=== PATIENT | female | born 1975 | race Caucasian/White ===

== ENCOUNTER 2022-06-19 12:58 | Emergency (ER) | payer BC, SELFPAY ==
--- NOTE | 2022-06-19 13:10 | ED.URI ---
HPI - URI/Sore Throat General Chief Complaint: Upper Respiratory Infection Stated Complaint: ore throat Time Seen by Provider: 06/19/22 13:28 Source: patient and RN notes reviewed Mode of arrival: ambulatory Limitations: no limitations History of Present Illness HPI Narrative: 47-year-old female presents with concern for sore throat for 2 weeks. Reports she has had a headache for that entire time. She reports she started having some right frontal sinus pain. She denies taking any [id number] medications other than throat lozenges. She denies fever, aches, chills, sweats. 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 EYES: Denies visual changes, redness, or discharge. ENT: Denies rhinorrhea, congestion. Reports sinus pain and sore throat. CARDIOVASCULAR: Denies chest pain, palpitations, or edema. RESPIRATORY: Denies cough. Denies dyspnea. GASTROINTESTINAL: Denies abdominal pain, nausea, vomiting, diarrhea SKIN: Denies rash or itching. MUSCULOSKELETAL: Denies myalgia. NEUROLOGIC: Reports headache. All systems reviewed & are unremarkable except as noted in HPI and below PMFSH Comments At time of signature, agree with nursing past medical, surgical, social and family history. There is no relevant family history pertinent to the presenting complaint Exam Narrative: GENERAL: Well-appearing, well-nourished, and in no acute distress. HEAD: Normocephalic EYES: PERRLA, conjunctivae clear ENT: Nares clear, sinus tenderness. Mucous membranes moist. TM pearly burden with dull light reflex bilaterally; no tragal tenderness. Oropharynx erythematous without lesions. Tonsils not enlarged and without exudate, no drooling, no hoarseness, no trismus, uvula midline. NECK: Supple. No lymphadenopathy CHEST: Clear to auscultation, breath sounds equal. No wheezing, rhonchi, rales, or stridor. No respiratory distress, speaks in full sentences. HEART: Regular rate and rhythm. No murmur heard. SKIN: Warm, dry, no rash. NEURO: Alert and oriented x3. PSYCH: Normal mood and affect Course Course Emergency Course: Patient is aware of diagnosis, understands and agrees to treatment plan. Anticipatory guidance given. Patient agrees to follow-up as directed and is aware of reasons to seek care at the emergency department. Portions of this record may have been created with voice recognition software Level of Care: Express Care Visit Vital Signs Vital signs: Reviewed. MDM - URI/Sore Throat MDM Narrative Medical decision making narrative: Differential diagnosis considered: Hawk virus, strep pharyngitis, allergic rhinitis, upper respiratory tract infection, sinusitis, rhinosinusitis, nasopharyngitis. viral pharyngitis, otitis media, otitis externa, pneumonia, bronchitis, viral cough syndrome, viral syndrome, and influenza. Exam findings show no acute concerns or changes; patient is non-toxic appearing and is in no distress. Patient is appropriate for outpatient treatment and follow-up. Lab Data Attestation: I reviewed the patient's lab results. Critical Care Time Critical Care Time Critical Care Time: No Discharge Plan Discharge Clinical Impression: Acute bacterial sinusitis Patient Disposition: Home, Self-Care Condition: Stable Instructions: Antibiotic Form Additional Instructions: Take medication as prescribed Nonprescription p
[2022-06-19 13:11] VITALS: BP 106/80; PULSE 85; RESP 16; TEMP 36.6; O2SAT 100
== END 2022-06-19 13:40 | disposition home or self-care (01) ==
PROVIDERS: Emergency Provider Nurse Practitioner; PCP Internal Medicine
DX: J01.90 Acute sinusitis, unspecified (principal); Z79.82 Long term (current) use of aspirin; I10 Essential (primary) hypertension; K21.9 Gastro-esophageal reflux disease without esophagitis
CPT/HCPCS: 87081; 87880; 99203; G0463

== ENCOUNTER 2024-06-20 01:33 | Day surgery (SDC) | payer BC, SELFPAY ==
[2024-06-04 13:01] VITALS: BMI 33.5
[2024-06-20 13:00] VITALS: BP 132/73; PULSE 88; RESP 18; TEMP 36.1; O2SAT 98
[2024-06-20 13:04] LABS: BEDSIDEPREGUCG Negative (Negative)
[2024-06-20] MEDS: LACTATED RINGERS 1,000 ML 150 ML IV CONT (13:12)
--- NOTE | 2024-06-20 13:12 | P.PNAN_ITS ---
Anes - Initial Pre Proc Eval Procedure: Operation Date: 06/20/24 14:00 Proposed Procedures p Colonoscopy - Pedrito Day MD Date/Time: 06/20/24 13:12 Surgeon: Pedrito Day MD Pre Op Diagnosis: family hx of cancer Patient Data Age: 49 Gender: F Height: 1.63 m Weight: 84.6 kg Last Vital Signs Temp 36.1 C L 06/20/24 13:00 Pulse 88 06/20/24 13:00 Resp 18 06/20/24 13:00 BP 132/73 06/20/24 13:00 Pulse Ox 98 06/20/24 13:00 O2 Del Method Room Air 06/20/24 13:00 Allergies Allergy/AdvReac Type Severity Reaction Status Date / Time naproxen [From Naprosyn] Allergy Intermediate Itching Verified 06/20/24 12:58 phenobarbital Allergy Intermediate Rash Verified 06/20/24 12:58 Home Medications Medication Instructions Recorded Confirmed Type diltiazem HCl 120 mg 120 mg PO DAILY 06/19/22 06/20/24 History capsule,extended release 24 hr omeprazole magnesium 20 mg 20 mg PO DAILY 06/19/22 06/20/24 History tablet,delayed release (Prilosec OTC) aspirin 325 mg tablet 325 mg PO DAILY 12/20/23 06/20/24 History cyanocobalamin (vitamin B-12) 1,000 mcg PO DAILY 12/20/23 06/20/24 History 1,000 mcg capsule magnesium 200 mg tablet 400 mg PO DAILY 12/20/23 06/20/24 History Laboratory Tests 06/20/24 13:00 POC Urine HCG, Qual Negative (Negative) Patient hx anesthesia problems: none Family hx anesthesia problems: none Results Review: All pre-operative results and documents have been reviewed as part of the pre- operative evaluation. [facility] Past Medical History Medical History Abscess after procedure surgery removal Tachycardia Surgical History Surgical History H/O eye surgery 1976 History of appendectomy 1989 Social History Social History Smoking status: Never smoker Alcohol intake: current Drinks per week: 4 Alcohol use details: occasionally Substance use type: does not use Do You Feel Safe in your Home?: Yes Lack of Transportation: No Lack of Food: Never True Current Housing: I Have Housing Concerned About Future Housing: No Difficulty Paying Gas/Electric Bills: No Difficulty Paying for Meds: No Currently Unemployed: No Education: Master's Degree or Higher Difficulty w/ Childcare or Family Care: No Living arrangements: with family Spiritual care concerns: No Anes - Eval Final PreProcedure Day of Procedure 06/20/24 13:12 Patient weight: obese Heart: regular rate and rhythm Lungs: clear to auscultation Airway: Mallampati scale class II Neurological: alert and oriented Last oral intake: >/= 8 hours ASA classification: III Emergent: no Anesthetic plan: proceed Anesthesia type and monitoring: general GIVS and standard monitoring Results Review: All pre-operative results and documents have been reviewed as part of the pre- operative evaluation. Informed Consent: The patient's anesthetic plan and its attendant risks and benefits were discussed with the patient/family/POA. Questions were solicited and answers provided to the satisfaction of the patient/family/POA.
--- NOTE | 2024-06-20 13:40 | PM.HPGS ---
History of Present Illness History of Present Illness Consent: Risks, benefits, and alternatives have been discussed and questions answered. Patient agrees to proceed with procedure. Chief complaint: family hx of cancer Narrative: Codie Castillo is a 49 year old female here for screening colonoscopy Review of Systems Review of Systems: All systems reviewed & are unremarkable except as noted in HPI and below PMFSH Past Medical History Medical History (Updated 06/20/24 @ 13:42 by Pedrito Day MD) Abscess after procedure surgery removal Colon cancer screening Tachycardia Surgical History Surgical History H/O eye surgery 1975 History of appendectomy 1989 Social History Social History Smoking status: Never smoker Alcohol intake: current Drinks per week: 4 Alcohol use details: occasionally Substance use type: does not use Do You Feel Safe in your Home?: Yes Lack of Transportation: No Lack of Food: Never True Current Housing: I Have Housing Concerned About Future Housing: No Difficulty Paying Gas/Electric Bills: No Difficulty Paying for Meds: No Currently Unemployed: No Education: Master's Degree or Higher Difficulty w/ Childcare or Family Care: No Living arrangements: with family Spiritual care concerns: No Meds Home Medications and Allergies Home Medications Medication Instructions Recorded Confirmed Type diltiazem HCl 120 mg 120 mg PO DAILY 06/19/22 06/20/24 History capsule,extended release 24 hr omeprazole magnesium 20 mg 20 mg PO DAILY 06/19/22 06/20/24 History tablet,delayed release (Prilosec OTC) aspirin 325 mg tablet 325 mg PO DAILY 12/20/23 06/20/24 History cyanocobalamin (vitamin B-12) 1,000 mcg PO DAILY 12/20/23 06/20/24 History 1,000 mcg capsule magnesium 200 mg tablet 400 mg PO DAILY 12/20/23 06/20/24 History Allergies Allergy/AdvReac Type Severity Reaction Status Date / Time naproxen [From Naprosyn] Allergy Intermediate Itching Verified 06/20/24 12:58 phenobarbital Allergy Intermediate Rash Verified 06/20/24 12:58 Vital Signs Vital Signs - 24 hr 06/20/24 13:00 Temperature 97 F L Pulse Rate 88 Respiratory Rate 18 Blood Pressure 132/73 Pulse Oximetry 98 Oxygen Delivery Room Air Exam Const: General: comfortable and no acute distress HENMT: Face/Nose/Sinus: Normal nares present Eyes: General: appearance normal, both eyes and all related structures Neck: Neck: no JVD Resp: Auscultation: clear to auscultation bilaterally Cardio: Rate: regular rate Rhythm: regular rhythm GI: Inspection: non-distended GI Palp: Yes Soft to palpation Skin: General skin exam: normal color Neuro: General: gait normal Speech: normal speech Extrem: General: normal to inspection Psych: Mental Status: mental status grossly normal Assessment and Plan Assessment and plan (1) Colon cancer screening: Code(s): Z12.11 - Encounter for screening for malignant neoplasm of colon Status: Acute Assessment and Plan: colonoscopy
[2024-06-20 13:55] VITALS: BP 109/64; PULSE 88; RESP 15; O2SAT 97
[2024-06-20 14:05] VITALS: BP 111/70; PULSE 82; RESP 22; O2SAT 97
[2024-06-20 14:15] VITALS: BP 120/78; PULSE 66; RESP 17; O2SAT 98
== END 2024-06-20 14:31 | disposition home or self-care (01) ==
PROVIDERS: Anesthesiology; PCP Internal Medicine; Visit Provider Internal Medicine Gastroenterology
PROC: 0DJD8ZZ Inspection of Lower Intestinal Tract, Via Natural or Artificial Opening Endoscopic (ICD-10-PCS; CPT 45378; principal; 2024-06-20 14:00)
DX: Z12.11 Encounter for screening for malignant neoplasm of colon (principal); K57.30 Diverticulosis of large intestine without perforation or abscess without bleeding; R00.0 Tachycardia, unspecified; E66.9 Obesity, unspecified; Z68.32 Body mass index [BMI] 32.0-32.9, adult; Z79.82 Long term (current) use of aspirin; Z98.890 Other specified postprocedural states; Z80.0 Family history of malignant neoplasm of digestive organs
CPT/HCPCS: 45378; J2704; J7120